=== PATIENT | male | born 1960 | race Caucasian/White ===

== ENCOUNTER 2018-05-21 18:10 | Emergency (ER) | payer OTHER ==
[2018-05-21] MEDS ORDERED: TDAP ADULT 0.5 ML INJ (BOOSTRIX) IM ONE (18:34)
--- NOTE | 2018-05-21 18:47 | EDPHY ---
H & P Smoking Status: Never smoked Time Seen by Provider: 05/21/18 18:35 HPI/ROS: CHIEF COMPLAINT: Left index finger laceration HISTORY OF PRESENT ILLNESS: Caught between a trailer and his truck while attempting to hook them up about an hour ago. Laceration on the volar surface. REVIEW OF SYSTEMS: No tingling or numbness distally and no foreign body sensation. PAST MEDICAL HISTORY: ACL surgery, tetanus not up-to-date General Appearance: Alert and conversant, cooperative. Volar laceration on the index finger on the left side between the MCP and the PIP. Normal motor and sensory distally. Normal flexor and extensor tendon function. Normal 2 point discrimination and normal capillary refill. Laceration is irregular. Emergency Department course/MDM: Tetanus updated, local and digital block performed with 5 mL of 0.5% bupivacaine without epinephrine. X-ray and wound care for (Clifton Blanco) Constitutional: Initial Vital Signs Temperature (C) 36.9 C 05/21/18 18:13 Heart Rate 75 05/21/18 18:13 Respiratory Rate 16 05/21/18 18:13 Blood Pressure 144/93 H 05/21/18 18:13 O2 Sat (%) 97 05/21/18 18:13 O2 Delivery Mode Room Air Allergies/Adverse Reactions: No Known Allergies Allergy (Unverified 05/21/18 18:13) Home Medications: Medication Instructions Recorded Celebrex 05/21/18 MDM/Departure - MDM Imaging Results: Imaging Impressions Finger X-Ray 05/21/18 18:46 Impression: Negative radiographs of the left index finger. Procedures: I was asked by Dr. Clifton Blanco to repair finger laceration. Laceration repair. Verbal consent was obtained from the patient. The a 3 cm flap laceration on the left index finger was anesthetized using digital block performed by Dr. Clifton Blanco using 0.5% bupivacaine without epinephrine. The wound was irrigated with saline, draped and explored to its base with a gloved finger. There were no deep structures involved. No tendon injury was identified. The wound was repaired with 4 0 Ethilon, 8 sutures. The wound repair was complex. The procedure was performed by myself. (Lucrecia Lopez) Medications Given: Discontinued Medications Diphtheria/Tetanus/Acell Pertussis (Boostrix) 0.5 ml IM .ONCE ONE Stop: 05/21/18 18:35 Last Admin: 05/21/18 18:37 Dose: 0.5 ml - Depart Disposition: Home, Routine, Self-Care Clinical Impression: Laceration of left index finger Qualifiers: Encounter type: initial encounter Damage to nail status: without damage Foreign body presence: without foreign body Qualified Code(s): S61.211A - Laceration without foreign body of left index finger without damage to nail, initial encounter Condition: Good Instructions: Care For Your Stitches (ED), Laceration (ED), Acute Wounds (ED), Stitches Removal (ED) Additional Instructions: Wound Care Follow-Up: Removal of sutures in 10 days. Suture removal is complimentary in uncomplicated cases. Infection or abnormal findings would require reevaluation by the MD. In that case, you may be billed. Return if you notice any signs or symptoms of infection such as redness, swelling, increased pain, fever, purulent drainage. Referrals: Trent Mark MD [Primary Care Provider] - As per Instructions
[2018-05-21 19:41] VITALS: BP 128/78
== END 2018-05-21 19:41 | disposition home or self-care (01) ==
PROC: 0HQGXZZ Repair Left Hand Skin, External Approach (ICD-10-PCS; principal; 2018-05-21)
DX: S61.211A Laceration without foreign body of left index finger without damage to nail, initial encounter (principal); W23.1XXA Caught, crushed, jammed, or pinched between stationary objects, initial encounter; Y93.H9 Activity, other involving exterior property and land maintenance, building and construction; Y99.8 Other external cause status; Z23 Encounter for immunization